=== PATIENT | male | born 1950 | race Caucasian/White ===

== ENCOUNTER 2020-12-24 14:10 | Outpatient (REF) | payer MEDICARE, SELFPAY ==
[2020-12-24 14:49] LABS: Appearance Urine CLOUDY; Color Urine YELLOW; Glucose Urine UA NEG (NEG); Leukocyte Esterase Urine 2+ (NEG); Nitrite Urine NEG (NEG); Urine Blood 2+ (NEG); Urine Ketones NEG (NEG); Urine Protein NEG (NEG-TRACE)
[2020-12-24 14:56] LABS: Bacteria Urine 3+ /LPF; Squamous Epithelial Cell Urine TRACE /LPF; WBC Urine 50-75 /HPF (0-4)
== END 2020-12-24 14:11 | disposition home or self-care (01) ==
LOC: HO.LAB 14:10
PROVIDERS: Visit Provider Urology
DX: R30.0 Dysuria (principal)
CPT/HCPCS: 81001; 87086; 87147

== ENCOUNTER → 2021-09-16 15:11 | Outpatient (BNVA) | payer MEDICARE, SELFPAY | PROVIDERS: Visit Provider Urology | DX: N40.1 Benign prostatic hyperplasia with lower urinary tract symptoms (principal); N13.8 Other obstructive and reflux uropathy; R33.9 Retention of urine, unspecified; N48.6 Induration penis plastica; N41.9 Inflammatory disease of prostate, unspecified | CPT/HCPCS: 99212 ==

== ENCOUNTER → 2022-05-28 08:34 | Outpatient (BNVA) | payer MEDICARE, SELFPAY | PROVIDERS: Visit Provider Urology | DX: N52.01 Erectile dysfunction due to arterial insufficiency (principal); N40.1 Benign prostatic hyperplasia with lower urinary tract symptoms | CPT/HCPCS: 51798; 99212 ==

== ENCOUNTER 2022-08-18 11:06 | Outpatient (REF) | payer MEDICARE, SELFPAY ==
[2022-08-18 13:49] LABS: Appearance Urine Cloudy; Color Urine Yellow; Glucose Urine UA Negative (Negative); Leukocyte Esterase Urine Small (1+) (Negative); Nitrite Urine Negative (Negative); UMIC TRIGGER UA YES; Urine Blood Negative (Negative); Urine Ketones Trace mg/dL (Negative); Urine Protein Negative (Neg-Trace)
[2022-08-18 13:55] LABS: Bacteria Urine 4+ (None Seen); Hyaline Casts Urine 0-2 /LPF (0-2); RBC Urine 0-2 /HPF (0-2); Squamous Epithelial Cell Urine 0-2 /HPF (0-2); WBC Urine 0-5 /HPF (0-5)
== END 2022-08-18 11:07 | disposition home or self-care (01) ==
LOC: HO.10HDL 11:06
PROVIDERS: Visit Provider Urology
DX: R30.0 Dysuria (principal)
CPT/HCPCS: 81001; 87086; 87088

== ENCOUNTER 2022-12-22 09:54 | Outpatient (REF) | payer MEDICARE, SELFPAY ==
[2022-12-22 11:24] LABS: Appearance Urine Cloudy; Color Urine Yellow; Glucose Urine UA Negative (Negative); Leukocyte Esterase Urine Large (3+) (Negative); Nitrite Urine Positive (Negative); PH 6.5 (5.0-9.0); UMIC TRIGGER UA YES; Urine Blood Small (1+) (Negative); Urine Ketones Negative (Negative); Urine Protein Trace mg/dL (Neg-Trace)
[2022-12-22 11:41] LABS: Bacteria Urine 4+ (None Seen); Hyaline Casts Urine 0-2 /LPF (0-2); RBC Urine 0-2 /HPF (0-2); Squamous Epithelial Cell Urine 0-2 /HPF (0-2); WBC Urine >50 /HPF (0-5)
== END 2022-12-22 09:55 | disposition home or self-care (01) ==
LOC: HO.LAB 09:54
PROVIDERS: Visit Provider Urology
DX: N40.1 Benign prostatic hyperplasia with lower urinary tract symptoms (principal)
CPT/HCPCS: 81001; 87086; 87088; 87186

== ENCOUNTER 2023-05-24 12:02 | Outpatient (REF) | payer MEDICARE, SELFPAY ==
[2023-05-24 16:18] LABS: Prostate Specific Antigen 0.63 ng/mL (<0.05-4.0)
== END 2023-05-24 12:03 | disposition home or self-care (01) ==
LOC: HO.LAB 12:02
PROVIDERS: PCP Physician Assistant Medical; Visit Provider Urology
DX: Z12.5 Encounter for screening for malignant neoplasm of prostate (principal); N40.1 Benign prostatic hyperplasia with lower urinary tract symptoms; N13.8 Other obstructive and reflux uropathy
CPT/HCPCS: 36415; 84153

== ENCOUNTER 2023-05-28 09:24 | Outpatient (AMB) | payer MEDICARE, SELFPAY ==
--- NOTE | 2023-05-28 09:27 | A.OFFVIS_ITS ---
Intake Intake Visit Reasons: 1Y PSA(set) Intake Note: Patient is present for Follow Up PSA/PVR Urology Med: Alfuzosin, Finasteride, Sildenafil Antibiotic Allergy: None Blood Thinner: None Pharmacy: [facility] PVR: 0ml Allergies cilantro Allergy (Unknown, Uncoded 05/28/23 09:33) itching difficulty swallowing HPI HPI Comments History of Present Illness Details Mr Durbin is a very pleasant male. He is a patient of Dr Lipscomb. He is seen for the following urologic conditions. - prostatitis - Peyronie's disease - erectile dysfunction Happy with current voiding parameters Erectile function maintained Minimal penile deviation with Peyronie's Current therapy alfuzosin, sildenafil, finasteride He did mention that he has been feeling faint when he bends over with provocative cardiac maneuvers. Does have a pacemaker. He may well be increasing intrathoracic pressure and triggering a low heart rate. Has planned cardiology appointment in the fall. Did advise him to make sure that e commerce marketing analyst investigate verses nurse assessment of pacemaker. Lower urinary tract symptoms Stable with medications PSA 05/16 0.6 Prostatitis/CPPS:? Improved voiding parameters on combination alfuzosin and finasteride ? They present for ?further evaluation of, chronic prostatitis.? He is currently being treated with?observation ?- Prostatitis since 2013. Treated in late 2014. E. Coli Resistant to doxycycline and Bactrim. Sensitive to Levaquin. Improved after 2 week course. Determined by prostatic expression and culture. ?Baseline PSA 2012 1.4.? Severity of the symptom?Prostate Symptom Score, moderate.? Type of prostatitis?II - chronic bacterial.? Peyronie's Disease:?? Stable in good response to erectile medications. ?Peyronie's? stable ?Does report erectile dysfunction ?Will prescribe PDE? 5 ?Continue surveillance. ?The patient presents for followup up evaluation for penile? disorder.?Primary complaint is? penile curvature,? to the right,? dorsally,? associated erectile? dsyfunction.?The problem has been present Ongoing since early 2017.?At this? time he experiences partial erections which? are not adequate for penetrative intercourse, that last until ejaculation.? [place] has is? unaffected.?Associated symptoms include? penile? pain? No ? penile discharge? No ?Prior? management includes no? treatment to date.?Strength of urinary stream no change.? Associated conditions? history of penile trauma? ?No ? CAD? No ? diabetes? ?No ? erectile dysfunction? No ?hypertension? No ? peripheral vascular disease? ?No ?Natural history of Peyronie's and treatment options have? bee o bservation, use of vaccum device protocol.? 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 dysfunction Nocturia Peyronie's disease Prostatitis Review of Systems Const Denies chills and Denies fever(s) Card Reports no additional complaints and Denies syncope Resp Denies cough GI Denies abdominal pain and Denies heartburn Reports as per HPI and Denies change in libido Neuro Denies syncope Psych Denies change in libido Endo Denies change in libido Physical Exam Const General: cooperative, healthy appearing, comfortable and no acute distress Orientation/consciousness: patient oriented x3 HEENT Face and sinus: Yes normal facial exam Mouth: moist mucous membranes Neck Neck: Yes normal visual inspection, Yes full ROM and Yes trachea midline Chest Chest palpation & inspection: normal inspection of the chest Resp Effort & Inspection: normal respiratory effort, able to speak in complete sentences and no respiratory distress GI Inspection: Yes normal to inspection Back/Spine/Pelvis Cervical Spine: normal cervical lordosis Thoracic/Lumbar Spine: thoracic and lumbar spine normal to inspection Skin General skin exam: no rashes or lesions noted Neuro General: patient oriented x3, gait normal, tone normal and moves all extremities Extrem General: Yes normal to inspection and Yes capillary refill normal Office Procedures Post Void Residual Post Residual Void Post Void Residual (PVR): 0 [id number] Void Residual by ultrasound Assessment & Plan Assessment & Plan (1) Erectile dysfunction due to arterial insufficiency: Code(s): N52.01 - Erectile dysfunction due to arterial insufficiency (2) Benign prostatic hyperplasia with lower urinary tract symptoms: Code(s): N40.1 - Benign prostatic hyperplasia with lower urinary tract symptoms (3) Nocturia: Code(s): R35.1 - Nocturia (4) Peyronie's disease: Code(s): N48.6 - Induration penis plastica Plan Twelve month follow-up Orders: Orders AMB Post Void Residual by ultrasound Today N40.1 - Benign prostatic hyperplasia with lower urinary tract symptoms Patient Instructions: Imaging studies, laboratory and physical exam results were discussed and reviewed in detail. No major barriers to patient understanding were identified. An opportunity to ask questions regarding the treatment plan was provided. All questions were answered. The patient expressed understanding and agreement with the above treatment plan. The patient is aware they should contact our office by phone for worsening of their current condition or the appearance of new urologic symptoms. Compliance is encouraged with any medications and followup testing that is ordered. It is a privilege to participate in the urologic care of your patient. If you have any questions or concerns regarding treatment for the above conditions, or other urologic issues, please do not hesitate to contact me. The office telephone contact is [phone]. This note is constructed using voice recognition software. While every effort has been made to ensure accuracy board certified orthodontist errors may have been included. Yours sincerely, Dr Umesh Frias MD, [facility] - Urology Providers of Expert, Compassionate Care for the Genitourinary System Coding Level of Care Code Est Pt Level 4 (80861) Diagnoses Erectile dysfunction due to arterial insufficiency N52.01 Benign prostatic hyperplasia with lower urinary tract symptoms N40.1 Nocturia R35.1 Peyronie's disease N48.6 CPT Codes Post Residual Void - PVR CPT Code: [id number] Void Residual by ultrasound ([id number])
== END 2023-05-28 09:50 | disposition home or self-care (01) ==
PROVIDERS: Visit Provider Urology
DX: N40.1 Benign prostatic hyperplasia with lower urinary tract symptoms (principal); N52.01 Erectile dysfunction due to arterial insufficiency; R35.1 Nocturia; N48.6 Induration penis plastica
CPT/HCPCS: 99214

== ENCOUNTER → 2023-05-28 09:24 | Outpatient (BNVA) | payer MEDICARE, SELFPAY | PROVIDERS: Visit Provider Urology | DX: N52.01 Erectile dysfunction due to arterial insufficiency (principal); N48.6 Induration penis plastica; N40.1 Benign prostatic hyperplasia with lower urinary tract symptoms; R35.1 Nocturia | CPT/HCPCS: 51798; 99212 ==

== ENCOUNTER 2024-05-26 13:26 | Outpatient (AMB) | payer MEDICARE, SELFPAY ==
--- NOTE | 2024-05-26 13:29 | A.OFFVIS_ITS ---
Intake Visit Reasons: 1Y Follow Up-PVR/BPH Intake Note: Patient is present for 1Y PVR follow up Urology Med: Finasteride, Alfuzosin, Sildenafil Antibiotic Allergy: None Blood Thinner: None Last PVR: 0 Today PVR: Patient's Last PSA was done 04/2023 Homebound Teacher Required: No Allergies cilantro Allergy (Unknown, Uncoded 05/26/24 13:32) itching difficulty swallowing Medication List - Last Reconciled 05/26/24 by Umesh Frias MD alfuzosin ER 10 mg PO DAILY 90 days atorvastatin 20 mg PO DAILY finasteride 5 mg PO DAILY 90 days gabapentin mg PO ketoconazole 2% topical pantoprazole 40 mg PO DAILY sildenafil 100 mg PO ONCE PRN 30 days HPI Comments Details: Mr Durbin is a very pleasant male. He is a patient of Dr Lipscomb. He is seen for the following urologic conditions. - prostatitis - Peyronie's disease - erectile dysfunction 12 month follow-up Happy with current voiding parameters Erectile function maintained Minimal penile deviation with Peyronie's Current therapy alfuzosin, sildenafil, finasteride Refilled all medications Check PSA next year Lower urinary tract symptoms Stable with medications - pelvis using +finasteride PSA 05/16 0.6 Prostatitis/CPPS:? Improved voiding parameters on combination alfuzosin and finasteride ? They present for ?further evaluation of, chronic prostatitis.? He is currently being treated with?observation ?- Prostatitis since 2013. Treated in late 2014. E. Coli Resistant to doxycycline and Bactrim. Sensitive to Levaquin. Improved after 2 week course. Determined by prostatic expression and culture. ?Baseline PSA 2012 1.4.? Severity of the symptom?Prostate Symptom Score, moderate.? Type of prostatitis?II - chronic bacterial.? Peyronie's Disease:?? Stable in good response to erectile medications - sildenafil on demand ?Peyronie's? stable ?Does report erectile dysfunction ?Will prescribe PDE? 5 ?Continue surveillance. ?The patient presents for followup up evaluation for penile? disorder.?Primary complaint is? penile curvature,? to the right,? dorsally,? associated erectile? dsyfunction.?The problem has been present Ongoing since early 2018.?At this? time he experiences partial erections which? are not adequate for penetrative intercourse, that last until ejaculation.? [place] has is? unaffected.?Associated symptoms include? penile? pain? No ? penile discharge? No ?Prior? management includes no? treatment to date.?Strength of urinary stream no change.? Associated conditions? history of penile trauma? ?No ? CAD? No ? diabetes? ?No ? erectile dysfunction? No ?hypertension? No ? peripheral vascular disease? ?No ?Natural history of Peyronie's and treatment options have? bee o bservation, use of vaccum device protocol.? [facility] Medical History (Reviewed 05/26/24 @ 13:32 by Telma Carpenter [facility]) Benign prostatic hyperplasia with lower urinary tract symptoms Nocturia Peyronie's disease Combined arterial insufficiency and corporo-venous occlusive erectile dysfunction Prostatitis Review of Systems Const Denies chills and Denies fever(s) Card Reports no additional complaints and Denies syncope Resp Denies cough GI Denies abdominal pain and Denies heartburn Reports as per HPI and Denies change in libido Neuro Denies syncope Psych Denies change in libido Endo Denies change in libido Physical Exam Const General: cooperative, healthy appearing, comfortable and no acute distress Orientation/consciousness: patient oriented x3 HEENT Face and sinus: Yes normal facial exam Mouth: moist mucous membranes Neck Neck: Yes normal visual inspection, Yes full ROM and Yes trachea midline Chest Chest palpation & inspection: normal inspection of the chest Resp Effort & Inspection: normal respiratory effort, able to speak in complete sentences and no respiratory distress GI Inspection: Yes normal to inspection Back/Spine/Pelvis Cervical Spine: normal cervical lordosis Thoracic/Lumbar Spine: thoracic and lumbar spine normal to inspection Skin General skin exam: no rashes or lesions noted Neuro General: patient oriented x3, gait normal, tone normal and moves all extremities Extrem General: Yes normal to inspection and Yes capillary refill normal Assessment & Plan Assessment & Plan (1) Erectile dysfunction due to arterial insufficiency: Code(s): N52.01 - Erectile dysfunction due to arterial insufficiency Category: Medical (2) Benign prostatic hyperplasia with lower urinary tract symptoms: Code(s): N40.1 - Benign prostatic hyperplasia with lower urinary tract symptoms Category: Medical (3) Peyronie's disease: Code(s): N48.6 - Induration penis plastica Category: Medical Plan Twelve month followup Orders: Orders AMB Post Void Residual by ultrasound 05/26/24 N40.1 - Benign prostatic hyperplasia with lower urinary tract symptoms Prostate Specific Antigen 364 Days N40.1 - Benign prostatic hyperplasia with lower urinary tract symptoms Patient Instructions: Imaging studies, laboratory and physical exam results were discussed and reviewed in detail. No major barriers to patient understanding were identified. An opportunity to ask questions regarding the treatment plan was provided. All questions were answered. The patient expressed understanding and agreement with the above treatment plan. The patient is aware they should contact our office by phone for worsening of their current condition or the appearance of new urologic symptoms. Compliance is encouraged with any medications and followup testing that is ordered. It is a privilege to participate in the urologic care of your patient. If you have any questions or concerns regarding treatment for the above conditions, or other urologic issues, please do not hesitate to contact me. The office telephone contact is [phone]. This note is constructed using voice recognition software. While every effort has been made to ensure accuracy corduroy cutter operator errors may have been included. Yours sincerely, Dr Umesh Frias MD, [facility] - Urology Providers of Expert, Compassionate Care for the Genitourinary System Coding Level of Care Code Est Pt Level 4 (97139) Complex EM visit Add On G2211 Diagnoses Erectile dysfunction due to arterial insufficiency N52.01 Benign prostatic hyperplasia with lower urinary tract symptoms N40.1 Peyronie's disease N48.6
== END 2024-05-26 13:57 | disposition home or self-care (01) ==
PROVIDERS: PCP Physician Assistant Medical; Visit Provider Urology
DX: N52.01 Erectile dysfunction due to arterial insufficiency (principal); N40.1 Benign prostatic hyperplasia with lower urinary tract symptoms; N48.6 Induration penis plastica
CPT/HCPCS: 99214; G2211

== ENCOUNTER → 2024-05-26 13:26 | Outpatient (BNVA) | payer MEDICARE, SELFPAY | PROVIDERS: PCP Physician Assistant Medical; Visit Provider Urology | DX: N40.1 Benign prostatic hyperplasia with lower urinary tract symptoms (principal); N52.01 Erectile dysfunction due to arterial insufficiency; N48.6 Induration penis plastica | CPT/HCPCS: 99212 ==

== ENCOUNTER 2025-04-03 09:05 | Outpatient (AMB) | payer MEDICARE, SELFPAY ==
--- NOTE | 2025-04-03 09:14 | AM.OFFVISNUR ---
Intake Visit Reasons: culture/UA Allergies cilantro Allergy (Unknown, Uncoded 05/26/24 13:32) itching difficulty swallowing Nursing Note Patient presents to office for microgen testing after speaking with Dr. Frias while java front end web developer. Consent for testing signed by provider and patient. Sample to be picked up. Patient aware and agreeable. UA also run and entered. Results AMB Urinalysis, Automated UA Leukoctes 125 Alyssa/uL Last Edit by Ned Laird LPN on 04/03/25 09:16 UA Nitrite Negative Last Edit by Ned Laird LPN on 04/03/25 09:16 UA Urobilinogen 17 mg/dL Last Edit by Ned Laird LPN on 04/03/25 09:16 UA Protein 0.1 mg/dL Last Edit by Ned Laird LPN on 04/03/25 09:16 UA pH 6.0 Last Edit by Ned Laird LPN on 04/03/25 09:16 UA Blood 25 Kayden/uL Last Edit by Ned Laird LPN on 04/03/25 09:16 UA Specific [place] 1.020 Last Edit by Ned Laird LPN on 04/03/25 09:16 UA Ketone Negative Last Edit by Ned Laird LPN on 04/03/25 09:16 UA Bilirubin 0 mg/dL Last Edit by Ned Laird LPN on 04/03/25 09:16 UA Glucose 0 mg/dL Last Edit by Ned Laird LPN on 04/03/25 09:16 Assessment & Plan Assessment & Plan Orders: Orders AMB Urinalysis Automated Today N41.9 - Inflammatory disease of prostate, unspecified, R30.0 - Dysuria Coding
--- OUTSIDE RECORDS SUMMARY | 2025-04-03 09:46 | XMS_ITS | Encounter Summary ---
Author Organization [facility] Address [address] [place] [address] Care Team Providers Care Meat Counter Worker Name Role Phone Clinton Lipscomb MD Primary Care Provider [phone] Reason for Visit * Reason Onset Date Comments Checking on Fax/Manometry Scheduling 06/26/2021 Encounter Details Date Type Department Care Team (Late st Contact Info) Description 06/26/2021 Telephone [facility] Central Scheduling Department [address] [place] [id number] Telephone Intake, Staff Checking on Fax/Manometry Scheduling Social History Tobacco Use Types Packs/Day Years Used Date Smoking Tobacco: Never Smokeless Tobacco: Never Alcohol Use Standard Drinks/Week Comments Yes 1 (1 standard drink = 0.6 oz pur e alcohol) Transportation Answer Date Recorded Please wu the areas for wh ich the patient would like information or assistance: None Apply 12/31/2020 Lack of Transportation (Medical) Not on file 12/31/2020 Housing Stability Answer Date Recorded Please wu the areas for wh ich the patient would like information or assistance: None Apply 12/31/2020 Unable to Pay for Housing in the Last Year Not o n file 12/31/2020 Last EPDS Total Score Not on file 12/31/2020 Unstable Housing in the Last Year Not on file 12/31/2020 Sex and Gender Information Value Date Recorded Sex Assigned at Male 01/14/2021 8:59 PM EDT Legal Sex Male 1:23 AM EDT Gender Identity Male 01/14/2021 8:59 PM EDT Sexual Orientation Straight 01/14/2021 8: 59 PM EDT 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 on file Not on file Not on f ile documented as of this encounter Miscellaneous Notes * Telephone Encounter - Hector Alexandra - 06/26/2021 2:44 PM EDT [facility], stated fax sent over with referral, office notes, and order for manometry on 06/19 No notes appear in file She will be sending over a 2nd request Looking to confirm when received Also looking for PT to be contacted for manometry scheduling Veena, [facility] can be reached back at [phone] documented in this encounter Plan of Treatment Upcoming Encounters Date Type Department Care Team (Late st Contact Info) Description 05/01/2025 9:30 AM EDT Office Visit [facility] Internal Medicine [address] [phone] Clinton Lipscomb MD [address] [address] 09/12/2025 2:45 PM EST Appointment [facility] [address] [place] [address] Iain Morgan MD [address] [place] [address] documented as of this encounter Visit Diagnoses Not on filedocumented in this encounter Care Teams Meat Counter Worker Relationship Specialty Start Date End Date Clinton Lipscomb MD [address] [id number] PCP - General Internal Medicine 05/13/17 documented as of this encounter
== END 2025-04-03 09:17 | disposition home or self-care (01) ==
LOC: HO.HUSH 09:05
PROVIDERS: PCP Physician Assistant Medical; Visit Provider Urology
DX: R30.0 Dysuria (principal); N41.9 Inflammatory disease of prostate, unspecified

== ENCOUNTER → 2025-04-03 09:05 | Outpatient (BNVA) | payer MEDICARE, SELFPAY | PROVIDERS: PCP Physician Assistant Medical; Visit Provider Urology | DX: N41.9 Inflammatory disease of prostate, unspecified (principal) | CPT/HCPCS: 81003 ==

== ENCOUNTER 2025-05-22 14:10 | Outpatient (REF) | payer MEDICARE, SELFPAY ==
--- OUTSIDE RECORDS SUMMARY | 2025-05-22 14:55 | XMS_ITS | Patient Health Record ---
Author Organization [facility] Address [address] [place], [place] [id number] Care Team Providers Care Portfolio Accountant Name Role Phone Clinton Lipscomb MD Primary Care Provider Unavail able Tami Abad Unavailable [phone] ScottJuliann salas Unavailable [phone] Allergies Allergen (clinical drug ingredient) Drug/Non Drug Allergy documented on EMR Reaction Allergy Type Onset Date Status metronidazole Flagyl Unknown Drug Allergy Act khalif clindamycin Clindamycin Unknown Drug Allergy Act khalif Reason For Referral No Information Medications Medication SIG (Take, Route, Fr equency, Duration) Notes Start Date End Date Status Acetaminophen 500 MG 1 capsule as needed Orally every 6 hrs PRN Active Alfuzosin HCl ER 10 MG 1 tablet immediat arnulfo after the same meal Orally Once a day Active Finasteride 5 MG 1 tablet Orally Once a day Active Gabapentin 400 MG 1 capsule Orally Once a day Active Fish Oil Active CPAP* DX: CELE G47.33 REPLACEMENT CPAP NE EDED as directed SETTINGS: 5 - 10 CM FIT FOR MASK SIG DATE:02/10/2018 During sleep nightly for the treatment of sleep apnea; Duration: lifetime 02/10/2018 Active Ketoconazole 2 % Externally Ac tive Tamsulosin HCl 0.4 MG 1 capsule Orally O nce a day; Duration: 90 days Active Problems Problem Type SNOMED Code ICD Code Onset Dates Problem Status W/U Status Risk Notes Problem Obstructive sleep apnea syndrome (disorder) (94022951) Obstructive sleep apnea (adult) (pediatric) (G47.33) Active confirmed Problem Overweight (450337692) Overweight (E66.3) Active confirmed Problem Dependence on enabling machine or device (536836976) Dependence on other enabling machines and devices (Z99.89) Active confirmed Problem CEEL (obstructive sleep apnea) (G47.33) Active confirmed Problem Hypersomnia (95817247) Hypersomnia (G47.10) Active confirmed Problem Daytime somnolence (510512234614) Excessive daytime sleepiness (G47.19) Active confirmed Problem History of Clostridioides difficile infection (Z86.19) Active confirmed Vital Signs Heart Rate 60 /min 11/15/2024 Temperature 97.6 degrees Fahrenheit 11/15/2024 Respiratory Rate 16 /min 11/15/2024 Blood pressure diastolic 72 mm Hg 11/15/2024 Height 72 in 11/15/2024 Blood pressure systolic 132 mm Hg 11/15/2024 Weight 213.2 lbs 11/15/2024 BMI 28.91 kg/m2 11/15/2024 Encounters Encounter Location Date Provider Diagnosis [facility] [address] [id number] 08/14/2024 Tami Abad CELE (obstructive sleep apnea) G47.33 ; Overweight E66.3 and Excessive daytime sleepiness G47.19 [facility] [address] [id number] 11/15/2024 Juliann Chavez CELE (obstructive sleep apnea) G47.33 ; Overweight E66.3 and Excessive daytime sleepiness G47.19 [facility] [address] [id number] 08/15/2024 Tami Abad Assessments Encounter Date Diagnosis (ICD Code) Assessment Notes Treatment Notes Treatment Clinical Notes Section Notes 08/14/2024 CELE (obstructive sleep apnea) (ICD-10 - G47.33) He is using his CPAP machine and benefiting from using it, his current machine is broken beyond repair, so I will order a replacement CPAP auto CPAP 6-15, CPAP care instructions were provided. 11/15/2024 CELE (obstructive sleep apnea) (ICD-10 - G47.33) The patient received his new machine, is using his machine, and benefiting from using it. He will continue on the same pressure settings auto CPAP 6-15. Advised to change his mask. CPAP care instructions were reviewed. 08/14/2024 Overweight (ICD-10 - E66.3) Weight monitoring was advised. 11/15/2024 Overweight (ICD-10 - E66.3) We reviewed the importance of weight loss to achieve and maintain a healthy BMI in effort to improve his sleep apnea and to optimize overall health. He would like to start walking more. 08/14/2024 Excessive daytime sleepiness (ICD-10 - G47.19) Controlled with CPAP therapy. 11/15/2024 Excessive daytime sleepiness (ICD-10 - G47.19) Controlled with CPAP therapy. Plan Of Treatment Next Appt Details Provider Name:Juliann Livier pelayo, 11/15/2025 03:40:00 PM, [address] [facility], [address], [place], [place], [id number], Insurance Providers Payer Name Payer Address Payer Phone Subscriber Number Group Number Insured Name Patient Relationship to Insured Coverage Start Date Coverage End Date Medicare [address] [place] [phone] [id number] Jordin Durbin Self - patient is the insured [facility] Medicare Supplement Plans [address] [place] [phone] [id number] Jordin Durbin Self - patient is the insured Medical (General) History Medical History History ICD Code Exercise associated asthma Esophageal reflux Prostatic hypertrophy Dyslipidemia Obstructive sleep apnea (adult) (pediatr ic) G47.33 Dependence on other enabling machines an d devices Z99.89 History of Clostridioides difficile infe ction Z86.19 Surgical History Surgery Date(Month/Year) Tonsillectomy Yang fundoplication Back surgery
--- OUTSIDE RECORDS SUMMARY | 2025-05-22 14:55 | XMS_ITS | Clinical Summary ---
Author Organization [facility] [email or web address] & [facility] lin Address [address] [place] [address] Care Team Providers Care Funeral Service Manager Name Role Phone Pcp, No Primary Care Provider [phone] Allergies No known active allergies Medications cyclobenzaprine (FLEXERIL) 10 MG tablet TAKE 1 TABLET TWICE DAILY. 0 08/19/2016 Active gabapentin (NEURONTIN) 400 MG capsule 10/28/2016 Active pantoprazole (PROTONIX) 40 MG tablet 10/28/2016 Active simvastatin (ZOCOR) 10 MG tablet 10/28/2016 Active tamsulosin (FLOMAX) 0.4 mg cp24 10/28/2016 Active Immunizations Name Administration Dates Next Due Fluzone Trivalent High Dose (65+ years) 10/29/19 17 Moderna Spikevax Covid-19 SDV (12+years) 024 Prevnar 13 Prefilled Syringe 10/29/2016 Social History Tobacco Use Types Packs/Day Years Used Date Smoking Tobacco: Never Assessed Sex and Gender Information Value Date Recorded Sex Assigned at Not on file Legal Sex Male 10:35 AM EST Gender Identity Not on file Sexual Orientation Not on file Last Filed Vital Signs Vital Sign Reading Time Taken Comments Blood Pressure - - Pulse - - Temperature 35.9 C (96.7 F) 10/29/2016 10:50 AM EST Respiratory Rate - - Oxygen Saturation - - Inhaled Oxygen Concentration - - Weight - - Height - - Body Mass Index - - Plan of Treatment Health Maintenance Due Date Last Done Comments Colorectal Cancer: COLONOSCO PY Screening every 10 yrs (or Modifier) 1950 Depression: Screening Annual ly using PHQ-2/9 in Adults 18 yrs or above (or HM Modifier)([facility]) 1968 Hepatitis C Virus Infection in Adolescents and Adults: Screening (or Modifier) ([facility]) 1968 [facility] Screening Reminder: Ny joelly for all adults ([facility]) 1968 Tobacco Smoking Cessation: i n Adults excluding Women: Behavioral and Pharmacotherapy Interventions ([facility]) 1968 Colorectal Cancer Screening 45 -75 Yrs (or HM Modifier) 1995 Colorectal Cancer: FLEXIBLE SIGMOIDOSCOPY Screening every 5 yrs 1995 Colorectal Cancer: Fecal Immunochemical Test (FIT) Annually [facility] 1995 Colorectal Cancer: High-sens itivity gFOBT Screening Annually [facility] 1995 Colorectal Cancer: Stool Col oguard Screening every 3 yrs 1995 Colorectal Cancer:CT Colonog rickey Screening every 5 yrs 1995 Zoster/Shingles Vaccine Seri es Screening: Adults aged 18+ yrs (or HM Modifiers)([facility]) (1 of 2) 2000 DTaP/Tdap/Td Vaccines ([facility]) (1 - Tdap) 03/10/2011 03/09/2011, 01/24/2008 Pneumococcal Vaccination Scr eening: Patients 50+ yrs of age ([facility]) (2 of 2 - PCV) 10/14/2019 10/14/2018, 10/29/2016 COVID-19 Vaccine Screening: Initial Series and Booster Status ([facility]) (2023- season) 2024 05/11/2024, 08/19/2021, 01/16/2021, Additional history exists Flu Vaccination: Ages 65+: Y early High Dose Recommended (or Modifier)([facility]) 05/25/2025 09/17/2019, 07/11/2018, 07/31/2017, Additional history exists RSV Vaccines (1 - 1-dose 75+ series) 2025 [employer] Devices Not on file Insurance MEDICARE Member Subscriber Plan / Payer (Ef fective 2015-Present) Name:Jordin Durbin Member ID:[id number] Relation to Subscriber:Self Name:Jordin Durbin Subscriber ID:[id number] Payer ID:Not on file Group ID:Not on file Type:Not on file Address: [address] MEDICARE [facility] Care Teams Funeral Service Manager Relationship Specialty Start Date End Date Pcp, No PCP - General Family Medicine 05/11/24
--- OUTSIDE RECORDS SUMMARY | 2025-05-22 14:55 | XMS_ITS | Clinical Summary ---
Author Organization [facility] Address [address] [id number] Care Team Providers Care Jeeper Operator Name Role Phone Clinton Lipscomb MD Primary Care Provider [phone] Sarah Kee MD Unavailable Allergies Active Allergy Reactions Criticality Noted Date Comments Cilantro 03/09/2019 Clindamycin 06/26/2021 Medications simvastatin (ZOCOR) 10 MG tablet 7 Active tamsulosin (FLOMAX) 0.4 mg 24 hr capsule TAKE 2 CAPSULES BY MOUTH EVERY DAY 3 9 Active ketoconazole (NIZORAL) 2 % shampoo Apply 2 application topically daily after breakfast. 0 9 Active alfuzosin (UROXATRAL) 10 mg 24 hr tablet Take 1 (one) tablet (10 mg total) by mouth once daily. Active finasteride (PROSCAR) 5 mg tablet Take 1 (one) tablet (5 mg total) by mouth once daily. 3 Active gabapentin (NEURONTIN) 400 MG capsule Take 1 (one) capsule (400 mg total) by mouth 2 (two) times a day. 3 Active Active Problems Problem Noted Date Diagnosed Date Clostridium difficile infection 03/09/2019 Assessment & Plan (05/06/2023 10:40 AM EDT): 72 y/o M 5 weeks s/p FMT via capsule after IV bezlo for recurrent C. difficile infection (CDI). Doing well without signs of recurrence. No AEs. -Discussed that we do not test for cure as patient may remain colonized (C diff PCR positive), but we would not treat this in absence of diarrheal symptoms -discussed antibiotic stewardship; probiotics generally not recommended, advised around use of psyllium and balanced diet for healthy gut microbiome and post-infection IBS symtpoms Assessment & Plan (04/02/2023 12:17 PM EDT): 72 yo M with recurrent C difficile. Here for FMT capsule dosing. Had dose of bezlo, has been off oral vancomycin x 72 hours and is NPO. -tolerated capsule dosing without difficulties -do not resume vancomycin -Already bleached bathrooms at home -discussed to watch for signs of CDI recurrence, would start vancomycin for clear clinical recurrence and send stool for testing if symptoms more vague or uncertain. 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 He is now having formed stool on oral vancomycin. -discussed repeat FMT by capsule (should not be off vanco more than 72 hours before doing, e.g. last dose Wednesday if dosing planned for a ) -will try go give doze of bezlotoxumab prior to FMT (while still on vanco). Discussed mechanism-monoclonal Ab against toxin B. Will put in order, get PA and determine what his out of pocket costs will be. Have had success using it for FMT failures. -continue vanco every day for now. Will let him know when to hold it (once bezlo timing determined) Assessment & Plan (01/21/2023 12:56 PM EDT): 72 y/o M with recurrent C difficile. Here for FMT capsule dosing. Has been off oral vancomycin x 72 hours and is NPO. -tolerated capsule dosing without difficulties -do not resume vancomycin -Already bleached bathrooms at home -discussed to watch for signs of CDI recurrence, would start vancomycin for clear clinical recurrence and send stool for testing if symptoms more vague or uncertain. -should let me know if any signs of infection/AEs or relapse -may eat normal diet as tolerated -follow up in 4 weeks Assessment & Plan (12/10/2022 6:38 PM EST): 72 y/o M with prior FMT for recurrent CDI, now back after 2nd recent episode-on vancomycin, but not feeling baseline. -discussed risk for further recurrence is high given his past history -discussed options including long taper vs FMT (oral capsule administration available) -He is most comfortable with FMT given his prior good experience/response. Discussed risk (infection) and also discussed availability of rebiota (enema product) for instead of banked donor material. -will meet with coordinator to sign ICFs for FMT and registry -continue QID vanco x 1 week, then BID until 72 hours prior to FMT -should be NPO for capsule administration; scheduled for 01/07 Assessment & Plan (05/11/2019 10:35 AM EDT): 68 y/o M 6 weeks s/p FMT via colonoscopy for recurrent C. difficile infection (CDI). Doing well without signs of recurrence. +constipation but prior h/o IBS and no other AEs. -Discussed that we do not test for cure as patient may remain colonized (C diff PCR positive), but we would not treat this in absence of diarrheal symptoms -discussed antibiotic stewardship; probiotic prophylaxis during future courses of antibiotics to reduce risk of CDI (handout given) -recommend psyllium supplementation -miralax if necessary Family History Medical History Relation Name Comments Colon cancer Paternal Grandmother Relation Name Status Comments Father Mother Paternal Grandmother Social History Tobacco Use Types Packs/Day Years Used Date Smoking Tobacco: Never Smokeless Tobacco: Never Tobacco Cessation:Counseling Given: Not Answered Alcohol Use Standard Drinks/Week Comments Yes 5 (1 standard drink = 0.6 oz pur e alcohol) Sex and Gender Information Value Date Recorded Sex Assigned at Not on file Legal Sex Male 9:51 AM EDT Gender Identity Not on file Sexual Orientation Not on file Last Filed Vital Signs Vital Sign Reading Time Taken Comments Blood Pressure 112/68 05/06/2023 10:16 AM EDT Pulse 59 05/06/2023 10:16 AM EDT Temperature 36.7 C (98 F) 05/06/2023 10:16 AM EDT Respiratory Rate 16 03/29/2023 9:00 AM EDT Oxygen Saturation 98% 05/06/2023 10:16 AM EDT Inhaled Oxygen Concentration - - Weight 92.4 kg (203 lb 9.6 oz) 05/06/2023 10:16 AM EDT Height 177.8 cm (5' 10 ) 05/06/2023 10:16 AM EDT Body Mass Index 29.21 05/06/2023 10:16 AM EDT Plan of Treatment Health Maintenance Due Date Last Done Comments MEDICARE ANNUAL WELLNESS VISIT (AWV) 1950 CT COLONOGRAPHY (CRC) 1995 FIT-DNA (CRC) 1995 FIT/iFOBT (CRC) 1995 SIGMOIDOSCOPY (CRC) 1995 RSV IMMUNIZATION (1 - Risk 60-74 years 1-dose series) 2010 ZOSTER VACCINE (3 of 3) 02/27/2022 01/02/2022, 07/29 COVID-19 IMMUNIZATION ( season) 2024 07/06/2022, 08/19/2021, 01/16/2021, Additional history exists INFLUENZA VACCINE (#1) 2025 2, 08/19/2021, 07/02/2020, Additional history exists COLONOSCOPY (CRC) 03/30/2029 03/30/2019 COLORECTAL CANCER SCREENING (CRC) 03/30/2029 DTAP/TDAP/TD VACCINES (2 - Td or Tdap) 01/03/2032 01/02/2022, 03/09/2011, 01/24/2008 PNEUMOCOCCAL VACCINE: 50+ YEARS Completed 10/14/2018, 10/29/2016 HEPATITIS C SCREENING Completed 03/09/2019 IPV VACCINES Aged Out No longer eligi ble based on patient's age to complete this topic MENINGOCOCCAL B VACCINE Aged Out No l onger eligible based on patient's age to complete this topic Procedures Procedure Name Priority Date/Time Associated Diagnosis Comments VALERIE ALVARADO NOTE COLONOSCOPY 03/30/2019 1:41 PM EDT HEPATITIS C ANTIBODY Routine 03/09/2019 1:13 PM EDT Infectious colitis, enteritis, and gastroenteritis from Last 3 Months or Most Recently Relevant to Health Maintenance Results * VALERIE ALVARADO NOTE COLONOSCOPY (03/30/2019 1:41 PM EDT) Narrative 03/30/2019 1:41 PM EDT Ordered by an unspecified provider. us Heather Purvis MD PROCEDURE/MINOR SURGICAL ORDERAB LES Final Result * Hepatitis C Antibody (03/09/2019 1:13 PM EDT) HCV Ab Qualitative Non Reac Non Reactive 03/09/2019 5:24 PM EDT Blood specimen (specimen) 03/09/2019 1:13 PM EDT 03/09/2019 3:07 PM EDT us Sarah Kee MD LAB BLOOD ORDERABLES Final Re sult [facility] [address] [place] [address] from Last 3 Months or Most Recently Relevant to Health Maintenance Insurance [facility] AARP SUPPLEMENTAL MEDICARE PART A AND B Care Teams Jeeper Operator Relationship Specialty Start Date End Date Clinton Lipscomb MD [address] [place] [id number] PCP - General Internal Medicine 02/28/19 Sarah Kee MD [address] [place] [id number] Gastroenterology 03/09/19
--- OUTSIDE RECORDS SUMMARY | 2025-05-22 14:55 | XMS_ITS | Clinical Summary ---
Author Organization [facility] Address [address] [place] [id number] Phone Care Team Providers Care Assembler Tubing Name Role Phone Clinton Lipscomb MD Primary Care Provider Allergies Active Allergy Reactions Criticality Noted Date Comments Clindamycin Diarrhea 04/30/2021 Pt got C-Diff Coriander GI Upset,Itching Medium 03/09/2019 Medications psyllium (METAMUCIL) 3.4 gram packet Take by mouth. Active pantoprazole (PROTONIX) 40 MG tablet 04/02/2021 Active omega-3 acid ethyl esters (LOVAZA) 1 gram capsule Take 1,000 mg by mouth. Active ibuprofen (ADVIL,MOTRIN) 200 MG tablet Take 200 mg by mouth every 6 (six) hours as needed. Active gabapentin (NEURONTIN) 400 MG capsule TAKE 1 CAPSULE BY MOUTH 2 TIMES A DAY. 04/09/2021 Active atorvastatin (LIPITOR) 20 MG tablet TAKE 1 TABLET BY MOUTH EVERY DAY 12/13/2020 Active alfuzosin (UROXATRAL) 10 mg 24 hr tablet Take 10 mg by mouth. Active ketoconazole (NIZORAL) 2 % shampoo 01/13/2021 Active Social History Tobacco Use Types Packs/Day Years Used Date Smoking Tobacco: Never Smokeless Tobacco: Never Tobacco Cessation:Counseling Given: Not Answered Education Answer Date Recorded Are you interested in more education? Not on momo e 02/20/2023 Are you concerned about learning? Not on file 02/20/2023 No 02/20/2023 No 02/20/2023 Digital Access Answer Date Recorded No 03/23/2023 No 03/23/2023 Reliable internet access at home? Not on file 03/23/2023 Device with a working camera? Not on file Sex and Gender Information Value Date Recorded Sex Assigned at Male 01/25/2024 4:48 PM EDT Legal Sex Male 7:54 AM EDT Gender Identity Male 01/25/2024 4:48 PM EDT Sexual Orientation Straight 01/25/2024 4: 48 PM EDT Last Filed Vital Signs Vital Sign Reading Time Taken Comments Blood Pressure 133/64 10/07/2022 3:14 PM EST Pulse 67 10/07/2022 3:14 PM EST Temperature - - Respiratory Rate 14 06/11/2021 1:32 PM EDT Oxygen Saturation 99% 10/07/2022 3:14 PM EST Inhaled Oxygen Concentration - - Weight 94.3 kg (208 lb) 10/07/2022 3:14 PM EST Height 177.8 cm (5' 10 ) 10/07/2022 3:14 PM EST Body Mass Index 29.84 10/07/2022 3:14 PM EST Plan of Treatment Upcoming Encounters Date Type Department Care Team (Late st Contact Info) Description 05/23/2025 2:30 PM EDT Office Visit [facility] Neurosurgery and Spine at [address] [address] Marisela De Leon PA-C [address] [facility] 4th [place] [address] [email or web address] Health Maintenance Due Date Last Done Comments DEPRESSION SCREENING 1962 COLOGUARD 1995 COLONOSCOPY 1995 COLORECTAL CANCER SCREENING 1995 FIT TEST 1995 FOBT 1995 SIGMOIDOSCOPY 1995 VIRTUAL COLONOSCOPY 1995 ZOSTER VACCINES (3 of 3) 02/27/2022 01/02/2022, 1002/2013 COVID-19 VACCINE ( season) 2024 07/06/2022, 08/19/2021, 01/16/2021, Additional history exists RSV VACCINE (1 - 1-dose 75+ series) 2025 LIPID PANEL 01/02/2027 01/02/2022, 03/0 06/2021, 11/21/2019, Additional history exists Adult Td,Tdap Booster 01/03/2032 01/02/2022 , 03/09/2011, 01/24/2008 HEPATITIS A VACCINES Aged Out 01/24/2008 No long er eligible based on patient's age to complete this topic HEPATITIS C SCREENING Completed 10/14/2018 PNEUMOCOCCAL VACCINES (50+ years) Completed 10/14/2018, 10/29/2016 SMOKING STATUS SCREENING (Once After 26 Yrs) Completed 10/07/2022 HIB VACCINES Aged Out No longer eligi ble based on patient's age to complete this topic MENINGOCOCCAL VACCINES (ACWY) Aged Out No longer eligible based on patient's age to complete this topic MENINGOCOCCAL VACCINES (B) Aged Out N o longer eligible based on patient's age to complete this topic Medical Devices Not on file Insurance MEDICARE PART A & B [facility] MEDICARE SUPPLEMENT MEDICARE PART A & B MEDICARE SUPPLEMENT MEDICARE PART A & B [facility] MEDICARE SUPPLEMENT MEDICARE PART A & B MEDICARE SUPPLEMENT MEDICARE PART A & B MEDICARE SUPPLEMENT MEDICARE PART A & B Member Subscriber Plan / Payer (Ef fective 2015-Present) Name:Jordin Durbin Member ID:[id number] Relation to Subscriber:Self Name:Jordin Durbin Subscriber ID:[id number] Payer ID:[id number] Group ID:Not on file Type:Medicare Address: [facility] [employer] [facility] [address] [place] [phone] [facility] MEDICARE SUPPLEMENT MEDICARE PART A & B MEDICARE SUPPLEMENT MEDICARE PART A & B MEDICARE SUPPLEMENT MEDICARE PART A & B Member Subscriber Plan / Payer (Ef fective 2015-Present) Name:Jordin Durbin Member ID:[id number] Relation to Subscriber:Self Name:Jordin Durbin Subscriber ID:[id number] Payer ID:[id number] Group ID:Not on file Type:Medicare Address: [facility] [employer] [facility] [address] [place] [phone] [facility] MEDICARE SUPPLEMENT [facility] MEDICARE SUPPLEMENT MEDICARE PART A & B Care Teams Assembler Tubing Relationship Specialty Start Date End Date Clinton Lipscomb MD [address] [facility] [address] [place] [address] [email or web address] PCP - General Internal Medicine 06/11/21 Additional Source Comments The information contained in this document represents components of the legal health record. It is not the complete legal health record.[facility]
--- OUTSIDE RECORDS SUMMARY | 2025-05-22 14:55 | XMS_ITS | Encounter Summary ---
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 Not on file [...] Thoracic Surg can be reached back at [phone] documented in this encounter Plan of Treatment Upcoming Encounters Date Type Department Care Team (Late st Contact Info) Description 09/12/2025 2:45 PM EST Appointment [facility] [address] [place] [address] Iain Morgan MD [address] [place] [address] 05/06/2026 10:30 AM EDT Office Visit [facility] Internal Medicine [address] [phone] Clinton Lipscomb MD [address] [phone] documented as of this encounter Visit Diagnoses Not on filedocumented in this encounter Care Teams Motorcycle Designer Relationship Specialty Start Date End Date Clinton Lipscomb MD [address] [phone] PCP - General Internal Medicine 05/13/17 documented as of this encounter
[2025-05-22 15:44] LABS: Prostate Specific Antigen 0.84 ng/mL (<0.05-4.0)
== END 2025-05-22 14:11 | disposition home or self-care (01) ==
LOC: HO.LAB 14:10
PROVIDERS: Visit Provider Urology
DX: N40.1 Benign prostatic hyperplasia with lower urinary tract symptoms (principal)
CPT/HCPCS: 36415; 84153

== ENCOUNTER 2025-05-29 09:24 | Outpatient (AMB) | payer MEDICARE, SELFPAY ==
--- NOTE | 2025-05-29 09:22 | MHC.OFFVIS ---
Intake Visit Reasons: 1y/PSA Intake Note: Patient is present for 1Y PVR follow up Urology Med: Finasteride, Alfuzosin, Sildenafil Antibiotic Allergy: None Blood Thinner: None Today PVR: 70 mls Labs done : 05/22/2025 PSA 0.84 Instructor Painting Required: No Accompanied by: Self / Same As Patient Allergies metronidazole (From Flagyl) Allergy (Severe, Verified 05/29/25 09:24) Rash sulfamethoxazole (From Bactrim) Allergy (Severe, Verified 05/29/25 09:24) Rash trimethoprim (From Bactrim) Allergy (Severe, Verified 05/29/25 09:24) Rash cilantro Allergy (Unknown, Uncoded 05/26/24 13:32) itching difficulty swallowing HPI Comments Details: Mr Durbin is a very pleasant male. He is a patient of Dr Lipscomb. He is seen for the following urologic conditions. - prostatitis - Peyronie's disease - erectile dysfunction Yearly follow-up PVR 70 cc Happy with current voiding parameters Erectile function maintained Minimal penile deviation with Peyronie's Current therapy alfuzosin, sildenafil, finasteride Recommend cutting back finasteride to Wednesday, Wednesday, Wednesday Refilled all medications Check PSA next year Continue good response to sildenafil Looking for new primary care doctor - suggest [place] Lower urinary tract symptoms Stable with medications - pelvis using +finasteride PSA 05/16 0.6, 05/18 0.8 Prostatitis/CPPS:? Improved voiding parameters on combination alfuzosin and finasteride ? They present for ?further evaluation of, chronic prostatitis.? He is currently being treated with?observation ?- Prostatitis since 2013. Treated in late 2014. E. Coli Resistant to doxycycline and Bactrim. Sensitive to Levaquin. Improved after 2 week course. Determined by prostatic expression and culture. ?Baseline PSA 2012 1.4.? Severity of the symptom?Prostate Symptom Score, moderate.? Type of prostatitis?II - chronic bacterial.? Peyronie's Disease:?? Stable in good response to erectile medications - sildenafil on demand ?Peyronie's? stable ?Does report erectile dysfunction ?Will prescribe PDE? 5 ?Continue surveillance. ?The patient presents for followup up evaluation for penile? disorder.?Primary complaint is? penile curvature,? to the right,? dorsally,? associated erectile? dsyfunction.?The problem has been present Ongoing since early 2017.?At this? time he experiences partial erections which? are not adequate for penetrative intercourse, that last until ejaculation.? [place] has is? unaffected.?Associated symptoms include? penile? pain? No ? penile discharge? No ?Prior? management includes no? treatment to date.?Strength of urinary stream no change.? Associated conditions? history of penile trauma? ?No ? CAD? No ? diabetes? ?No ? erectile dysfunction? No ?hypertension? No ? peripheral vascular disease? ?No ?Natural history of Peyronie's and treatment options have? bee observation, use of vaccum device protocol.? [facility] Medical History Benign prostatic hyperplasia with lower urinary tract symptoms Nocturia Peyronie's disease Combined arterial insufficiency and corporo-venous occlusive erectile dysfunction Prostatitis Review of Systems Const Denies chills and Denies fever(s) Card Reports no additional complaints and Denies syncope Resp Denies cough GI Denies abdominal pain and Denies heartburn Reports as per HPI and Denies change in libido Neuro Denies syncope Psych Denies change in libido Endo Denies change in libido Physical Exam Const General: cooperative, healthy appearing, comfortable and no acute distress Orientation/consciousness: patient oriented x3 HEENT Face and sinus: Yes normal facial exam Mouth: moist mucous membranes Neck Neck: Yes normal visual inspection, Yes full ROM and Yes trachea midline Chest Chest palpation & inspection: normal inspection of the chest Resp Effort & Inspection: normal respiratory effort, able to speak in complete sentences and no respiratory distress GI Inspection: Yes normal to inspection Back/Spine/Pelvis Cervical Spine: normal cervical lordosis Thoracic/Lumbar Spine: thoracic and lumbar spine normal to inspection Skin General skin exam: no rashes or lesions noted Neuro General: patient oriented x3, gait normal, tone normal and moves all extremities Extrem General: Yes normal to inspection and Yes capillary refill normal Assessment & Plan Assessment & Plan (1) Nocturia: Code(s): R35.1 - Nocturia Category: Medical (2) Benign prostatic hyperplasia with lower urinary tract symptoms: Code(s): N40.1 - Benign prostatic hyperplasia with lower urinary tract symptoms Category: Medical (3) Erectile dysfunction due to arterial insufficiency: Code(s): N52.01 - Erectile dysfunction due to arterial insufficiency Category: Medical Plan Twelve month follow-up Medications: Changed From sildenafil administer 60 minutes before intended activity 100 mg PO ONCE 30 days PRN 30 tabs 1RF sexual activity N52.01 - Erectile dysfunction due to arterial insufficiency To sildenafil administer 60 minutes before intended activity [id number] [facility] [id number] Member [id number] 100 mg PO ONCE PRN 30 tabs 2RF sexual activity 30 days N52.01 - Erectile dysfunction due to arterial insufficiency Refilled alfuzosin ER administer after the same meal each day 10 mg PO DAILY 90 tabs 3RF 90 days N52.01 - Erectile dysfunction due to arterial insufficiency finasteride 5 mg PO DAILY 90 tabs 3RF 90 days N13.8 - Other obstructive and reflux uropathy, N40.1 - Benign prostatic hyperplasia with lower urinary tract symptoms Patient Instructions: This note is constructed using voice recognition software. While every effort has been made to ensure accuracy assurance assistant errors may have been included. Imaging studies, laboratory and physical exam results were discussed and reviewed in detail. No major barriers to patient understanding were identified. An opportunity to ask questions regarding the treatment plan was provided. All questions were answered. The patient expressed understanding and agreement with the above treatment plan. The patient is aware they should contact our office by phone for worsening of their current condition or the appearance of new urologic symptoms. Compliance is encouraged with any medications and followup testing that is ordered. It is a privilege to participate in the urologic care of your patient. If you have any questions or concerns regarding treatment for the above conditions, or other urologic issues, please do not hesitate to contact me. The office telephone contact is [phone]. Sincerely, Dr Umesh Frias MD, [facility] - Urology Compassionate Specialist Care for the Genitourinary System Coding Level of Care Code Est Pt Level 4 (03980) Complex EM visit Add On G2211 Diagnoses Nocturia R35.1 Benign prostatic hyperplasia with lower urinary tract symptoms N40.1 Erectile dysfunction due to arterial insufficiency N52.01
--- OUTSIDE RECORDS SUMMARY | 2025-05-29 09:47 | XMS_ITS | Clinical Summary ---
Author Organization [facility] Address [address] [place] [address] Phone Care Team Providers Care Dairy Bacteriologist Name Role Phone Clinton Lipscomb MD Primary [...] ketoconazole (NIZORAL) 2 % shampoo 01/13/2021 Active Active Problems No known active problems Encounters Date Type Department Care Team Description 05/23/2025 2:30 PM EDT Office Visit [facility] Neurosurgery and Spine at [address] [address] Marisela De Leon PA-C Lumbar radiculopathy (Primary Dx) from Last 3 Months Social History Tobacco Use Types Packs/Day Years [...] Pulse 67 10/07/2022 3:14 PM EST Temperature 36.5 C (97.7 F) 05/23/2025 2:17 PM EDT Respiratory Rate 14 06/11/2021 1:32 PM EDT Oxygen Saturation 99% 10/07/2022 3:14 PM EST Inhaled Oxygen Concentration - - Weight 94.3 kg (208 lb) 10/07/2022 3:14 PM EST Height 177.8 cm (5' 10 ) 10/07/2022 3:14 PM EST Body Mass Index 29.84 10/07/2022 3:14 PM EST Plan of Treatment Health Maintenance Due Date Last Done Comments Adult Td,Tdap Booster 1950 COLOGUARD 1995 COLONOSCOPY 1995 COLORECTAL CANCER SCREENING 1995 FIT TEST 1995 FOBT 1995 SIGMOIDOSCOPY 1995 VIRTUAL COLONOSCOPY 1995 PNEUMOCOCCAL VACCINES (50+ years) (1 of 1 - PCV) 2000 ZOSTER VACCINES (1 of 2) 2000 COVID-19 VACCINE (1 - 2023- season) 2024 RSV VACCINE (1 - 1-dose 75+ series) 2025 DEPRESSION SCREENING 05/23/2026 05/23/2025 LIPID PANEL 02/06/2028 02/05/2023, 12/23, 12/31/2020, Additional history exists HEPATITIS C SCREENING Completed 03/09/2019, 018 SMOKING STATUS SCREENING (Once After 26 Yrs) Completed 10/07/2022 HEPATITIS A VACCINES Aged Out No long er eligible based on patient's age to complete this topic HIB VACCINES Aged Out No longer eligi ble based on patient's age to complete this topic MENINGOCOCCAL VACCINES (ACWY) Aged Out No longer eligible based on patient's age to complete this topic MENINGOCOCCAL VACCINES (B) Aged Out N o longer eligible based on patient's age to complete this topic Medical Devices Implanted Type Area Supervisor Bleach Plant Device Identifier Shelf Expiration Date Model / Serial / Lot Pacemaker-2020 Implanted:04/2021 (Quantity not on file) Pacemaker [employer] DDDR / [id number] / Insurance MEDICARE PART A & B [facility] MEDICARE SUPPLEMENT MEDICARE PART A & [place] [address] [place] [address] MEDICARE SUPPLEMENT MEDICARE PART A & B [facility] MEDICARE SUPPLEMENT MEDICARE PART A & B MEDICARE SUPPLEMENT MEDICARE PART A & B MEDICARE SUPPLEMENT MEDICARE PART A & B [facility] MEDICARE SUPPLEMENT MEDICARE PART A & B [facility] MEDICARE SUPPLEMENT MEDICARE PART A & B MEDICARE SUPPLEMENT MEDICARE PART A & B [facility] MEDICARE SUPPLEMENT [facility] MEDICARE SUPPLEMENT MEDICARE PART A & B Care Teams Dairy Bacteriologist Relationship Specialty Start Date End Date Clinton Lipscomb MD [address] [place] [id number] [email or web address] PCP - General Internal Medicine 06/11/21 Additional Source Comments The information contained in this document represents components of the legal health record. It is not the complete legal health record.[facility]
--- OUTSIDE RECORDS SUMMARY | 2025-05-29 09:47 | XMS_ITS | Clinical Summary ---
Author Organization [facility] Address [address] [place] [address] Care Team Providers Care Wheel Blocker Name Role Phone Pcp, No Primary Care Provider [phone] Allergies No known active allergies Medications cyclobenzaprine [...] Adults 18 yrs or above (or HM Modifier)([facility]) 1968 Hepatitis C Virus Infection in Adolescents and Adults: Screening (or Modifier) ([facility]) 1968 [facility] Screening Reminder: Ny joelly for all adults ([facility]) 1968 Tobacco Smoking Cessation: i n Adults excluding Women: Behavioral and Pharmacotherapy Interventions ([facility]) 1968 Colorectal Cancer Screening 45 -75 Yrs (or HM Modifier) 1995 Colorectal Cancer: FLEXIBLE SIGMOIDOSCOPY Screening every 5 yrs 1995 Colorectal Cancer: Fecal Immunochemical Test (FIT) Annually [facility] 1995 Colorectal Cancer: High-sens itivity gFOBT Screening Annually [facility] 1995 Colorectal Cancer: Stool Col oguard Screening every 3 yrs 1995 Colorectal Cancer:CT Colonog rickey Screening every 5 yrs 1995 Zoster/Shingles Vaccine Seri es Screening: Adults aged 18+ yrs (or HM Modifiers)([facility]) (1 of 2) 2000 DTaP/Tdap/Td Vaccines ([facility]) (1 - Tdap) 03/10/2011 03/09/2011, 01/24/2008 Pneumococcal Vaccination Scr eening: Patients 50+ yrs of age ([facility]) (2 of 2 - PCV) 10/14/2019 10/14/2018, 10/29/2016 COVID-19 Vaccine Screening: Initial Series and Booster Status ([facility]) (2023- season) 2024 05/11/2024, 08/19/2021, 01/16/2021, Additional history exists Flu Vaccination: Ages 65+: Y early High Dose Recommended (or Modifier)([facility]) 05/25/2025 09/17/2019, 07/11/2018, 07/31/2017, Additional history exists RSV Vaccines (1 - 1-dose 75+ series) 2025 Medical Devices Not on file Insurance MEDICARE Member Subscriber Plan / Payer (Ef fective 2015-Present) Name:Jordin Durbin Member ID:[id number] Relation to Subscriber:Self Name:Jordin Durbin Subscriber ID:[id number] Payer ID:Not on file Group ID:Not on file Type:Not on file Address: [address] MEDICARE [facility] Care Teams Wheel Blocker Relationship Specialty Start Date End Date Pcp, No PCP - General Family Medicine 05/11/24
--- OUTSIDE RECORDS SUMMARY | 2025-05-29 09:47 | XMS_ITS | Clinical Summary ---
Author Organization [facility] Address [address] [id number] Care Team Providers Care Commutator Undercutter Name Role Phone Clinton Lipscomb MD Primary Care Provider Sarah Kee MD Unavailable [phone] Allergies Active Allergy Reactions Criticality Noted Date [...] LAB BLOOD ORDERABLES Final Re sult [facility] [address] [place] [address] from Last 3 Months or Most Recently Relevant to Health Maintenance Insurance [facility] AARP SUPPLEMENTAL MEDICARE PART A AND B Care Teams Commutator Undercutter Relationship Specialty Start Date End Date Clinton Lipscomb MD [address] [place] [id number] PCP - General Internal Medicine 02/28/19 Sarah Kee MD [address] [place] [phone] Gastroenterology 03/09/19
--- OUTSIDE RECORDS SUMMARY | 2025-05-29 09:47 | XMS_ITS | Patient Health Record ---
Author Organization [facility] Address [address] [place], [place] [id number] Care Team Providers Care Produce Buyer Name Role Phone Clinton Lipscomb MD Primary Care Provider Unavail able Tami Abad Unavailable [phone] ScottJuliann salas Unavailable [phone] Allergies Allergen (clinical drug ingredient) Drug/Non Drug [...] Notes Problem Obstructive sleep apnea syndrome (disorder) (83059389) Obstructive sleep apnea (adult) (pediatric) (G47.33) Active confirmed Problem Overweight (805312839) Overweight (E66.3) Active confirmed Problem Dependence on enabling machine or device (300274682) Dependence on other enabling machines and devices (Z99.89) Active confirmed Problem Obstructive sleep apnea syndrome (16729865) CELE (obstructive sleep apnea) (G47.33) Active confirmed Problem Hypersomnia (49521334) Hypersomnia (G47.10) Active confirmed Problem Daytime somnolence (407242611980) Excessive daytime sleepiness (G47.19) Active confirmed Problem History of infectious disease (203132788) History of Clostridioides difficile infection (Z86.19) Active confirmed Vital Signs Heart Rate 60 /min 11/15/2024 Temperature 97.6 degrees Fahrenheit 11/15/2024 Respiratory Rate 16 /min 11/15/2024 Blood pressure diastolic 72 mm Hg 11/15/2024 Height 72 in 11/15/2024 Blood pressure systolic 132 mm Hg 11/15/2024 Weight 213.2 lbs 11/15/2024 BMI 28.91 kg/m2 11/15/2024 Encounters Encounter Location Date Provider Diagnosis [facility] [address] [id number] 08/14/2024 Tami Abad CELE (obstructive sleep apnea) G47.33 ; Overweight E66.3 and Excessive daytime sleepiness G47.19 [facility] [address] [id number] 11/15/2024 Juliann Chavez CELE (obstructive sleep apnea) G47.33 ; Overweight E66.3 and Excessive daytime sleepiness G47.19 [facility] [address] [id number] 08/15/2024 Tami Abad Assessments Encounter Date Diagnosis [...] Name:Juliann Livier pelayo, 11/15/2025 03:40:00 PM, [address] [facility], [address], [place], [place], [id number], Insurance Providers Payer Name Payer Address Payer Phone Subscriber Number Group Number Insured Name Patient Relationship to Insured Coverage Start Date Coverage End Date Medicare [address] [place] [phone] [id number] Jordin Durbin Self - patient is the insured [facility] Medicare Supplement Plans [address] [place] [address] [id number] Jordin Durbin Self - patient is the insured Medical (General) History Medical History History ICD Code Exercise associated asthma Esophageal reflux Prostatic hypertrophy Dyslipidemia Obstructive sleep apnea (adult) (pediatr ic) G47.33 Dependence on other enabling machines an d devices Z99.89 History of Clostridioides difficile infe ction Z86.19 Surgical History Surgery Date(Month/Year) Tonsillectomy Yang fundoplication Back surgery
--- OUTSIDE RECORDS SUMMARY | 2025-05-29 09:47 | XMS_ITS | Encounter Summary ---
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 Not on file [...] Thoracic Surg can be reached back at [phone] documented in this encounter Plan of Treatment Upcoming Encounters Date Type Department Care Team (Late st Contact Info) Description 09/12/2025 2:45 PM EST Appointment [facility] [address] [place] [address] Iain Morgan MD [address] [place] [address] 05/06/2026 10:30 AM EDT Office Visit [facility] Internal Medicine [address] [phone] Clinton Lipscomb MD [address] [phone] documented as of this encounter Visit Diagnoses Not on filedocumented in this encounter Care Teams Foil Spooler Relationship Specialty Start Date End Date Clinton Lipscomb MD [address] [phone] PCP - General Internal Medicine 05/13/17 documented as of this encounter
== END 2025-05-29 10:02 | disposition home or self-care (01) ==
LOC: HO.HUSH 09:24
PROVIDERS: PCP Physician Assistant Medical; Visit Provider Urology
DX: N40.1 Benign prostatic hyperplasia with lower urinary tract symptoms (principal); R35.1 Nocturia; N52.01 Erectile dysfunction due to arterial insufficiency
CPT/HCPCS: 99214; G2211

== ENCOUNTER → 2025-05-29 09:24 | Outpatient (BNVA) | payer MEDICARE, SELFPAY | PROVIDERS: PCP Physician Assistant Medical; Visit Provider Urology | DX: N40.1 Benign prostatic hyperplasia with lower urinary tract symptoms (principal); R35.1 Nocturia; N52.01 Erectile dysfunction due to arterial insufficiency | CPT/HCPCS: 99212 ==